=== PATIENT | female | born 1990 | race Two or more races ===

== ENCOUNTER 2017-07-05 07:54 | Emergency (ER) | payer MEDICAID ==
[~2017-07-05] VITALS: Ht 165.1 cm; Wt 113.4 kg
[~2017-07-05 07:54] MED LIST: GLUCOPHAGE500 MG ORAL; GLYBURIDE2.5 MG PO; NKM; OMEPRAZOLE40 M1 ORAL; RANITIDINE HCL150 MG ORAL; ZOFRAN ODT4 MG ORAL
--- NOTE | 2017-07-05 08:23 | Emergency Room Report ---
History of Present Illness General Chief Complaint: General Complaint Source: Patient Present Illness HPI 26YOM with 2 days intermittent bitemporal headache. Sharp, 4/10 pain. Associated with subjective "fever" yesterday. States she is about 3-4 months - taking multivitamins. Has not seen OB yet - "just found out I was ." No history of migraines, headaches. Denies neck pain/stiffness. Denies trauma Had 1 episode nausea/vomiting last night. Tolerating PO this morning Denies diarrhea. C/o polyuria Allergies: Coded Allergies: NO KNOWN ALLERGIES (Verified Allergy, Unknown, 03/26/15) Patient History Past Medical History: none Past Surgical History: none Pertinent Family History: none Social History: Denies: smoking, alcohol use, drug use Now: Yes Immunizations: UTD Reviewed Nursing Documentation: PMH: Agreed, PSxH: Agreed Nursing Documentation-PMH Hx Cardiac Problems: No Hx Hypertension: No Hx Diabetes: Yes Hx Cancer: No Hx Gastrointestinal Problems: No - Pancreatitis 03/2015 Hx Neurological Problems: No Review of Systems All Other Systems: negative except mentioned in HPI Physical Exam Vital Signs Date Time Temp Pulse Resp B/P (MAP) Pulse Ox O2 Delivery O2 Flow Rate FiO2 07/05/17 08:00 98.4 96 20 109/70 99 Room Air Sp02 EP Interpretation: reviewed, normal General Appearance: normal inspection, well appearing, no apparent distress, alert, GCS 15, non-toxic, obese Head: normocephalic, atraumatic Eyes: bilateral eye PERRL, bilateral eye EOMI ENT: normal ENT inspection, hearing grossly normal, normal pharynx, no angioedema, normal voice, TMs + canals normal, uvula midline, moist mucus membranes Neck: normal inspection, full range of motion, supple, thyroid normal, no meningismus, no bony tend Respiratory: normal inspection, lungs clear, normal breath sounds, no rhonchi, no respiratory distress, no retraction, no accessory muscle use, no wheezing, speaking full sentences Cardiovascular #1: regular rate, rhythm, no edema, no JVD, normal capillary refill Gastrointestinal: normal inspection, normal bowel sounds, non tender, soft, no mass, no peritonitis, non-distended, no guarding, no hernia, no pulsatile mass Genitourinary: no CVA tenderness Musculoskeletal: normal inspection, back normal, normal range of motion, no calf tenderness, pelvis stable, Fercho's Sign negative Neurologic: normal inspection, alert, oriented x3, responsive, renewals manager III-XII nml as tested, motor strength/tone normal, cerebellar normal, normal gait, speech normal Psychiatric: normal inspection, judgement/insight normal, mood/affect normal, no suicidal/homicidal ideation, no delusions Skin: normal inspection, normal color, no rash Lymphatic: normal inspection, no adenopathy Medical Decision Making Diagnostic Impression: Primary Impression: Headache Qualified Codes: G44.209 - Tension-type headache, unspecified, not intractable Additional Impressions: Polyuria Qualified Codes: Z34.90 - Encounter for supervision of normal , unspecified, unspecified trimester ER Course 26-year-old female approximately 3-4 months complaining of 2 days of bitemporal headache. Headache likely tension headache given duration of 2 days , intermittent quality. Unlikely SAH or meningitis given no focal deficits, afebrile, normal vital signs, well appearance. Was given Tylenol and Zofran with improvement in symptoms Urine preg negative UA: No hematuria or bacteria. ER course: Patient has remained stable during ED stay. Disposition: Patient is to be discharged to home. Prescriptions given are tylenol, zofran Patient is instructed to follow up with their primary care doctor within 5 days. Strict return precautions discussed with patient such as fever, chills, worsening/severe pain, nausea, vomiting, which may indicate severe illness. Patient verbalizes understanding and agrees with plan. Please note that this Emergency Department Report was dictated using [employer] in hand technology software, occasionally this can lead to erroneous entry secondary to interpretation by the dictation equipment Last Vital Signs Date Time Temp Pulse Resp B/P (MAP) Pulse Ox O2 Delivery O2 Flow Rate FiO2 07/05/17 08:00 98.4 96 20 109/70 99 Room Air Status: improved Disposition: HOME, SELF-CARE VIVIEN LERMA M.D. Jul 05, 2017 08:23
[2017-07-05 08:33] LABS: APPEARANCE,URINE CLEAR; BILIRUBIN, URINE NEGATIVE (NEGATIVE); COLOR,URINE PALE YELLOW; GLUCOSE, URINE (UA) NEGATIVE (NEGATIVE); KETONES,URINE NEGATIVE (NEGATIVE); LEUKOCYTE ESTERASE ,URINE NEGATIVE (NEGATIVE); NITRITE,URINE NEGATIVE (NEGATIVE); PH,URINE 8 (4.5-8.0); PROTEIN,URINE NEGATIVE (NEGATIVE); UROBILINOGEN,URINE NORMAL MG/DL (0.0-1.0)
[2017-07-05] MEDS ORDERED: TYLENOL325 MG ORAL (08:41)
[2017-07-05] MEDS ORDERED: ZOFRAN ODT4 MG ORAL (08:41)
[2017-07-05 08:51] VITALS: BP 123/83
== END 2017-07-05 08:55 | disposition home or self-care (01) ==
LOC: EMR 08:10
DX: R51 Headache (principal); R35.8 Other polyuria; E11.9 Type 2 diabetes mellitus without complications; Z33.1 Pregnant state, incidental
CPT/HCPCS: 81003; 81025; 99283

== ENCOUNTER 2017-11-28 15:36 | Emergency (ER) | payer MEDICAID ==
[~2017-11-28] VITALS: Ht 167.6 cm; Wt 122.5 kg
[~2017-11-28 15:36] MED LIST changes: +TYLENOL325 MG ORAL
[2017-11-28 16:05] VITALS: BP 113/64
--- NOTE | 2017-11-28 16:12 | Emergency Room Report ---
History of Present Illness General Chief Complaint: Complications Present Illness HPI Patient is a 26-year-old female who presented after increased vaginal bleeding. Patient reports having mild amount of bleeding which began this morning. The patient states she is approximately the 34 weeks. The patient states that she was scheduled to deliver at [facility]. The patient reported having intermittent abdominal cramping. Patient denies any leakage of fluid.. She states that baby is moving normally. The patient denies any fever. Allergies: Coded Allergies: NO KNOWN ALLERGIES (Verified Allergy, Unknown, 03/26/15) Patient History Past Medical History: see triage record Now: Yes : 1 Para: 0 Reviewed Nursing Documentation: PMH: Agreed; PSxH: Agreed Nursing Documentation-PMH Hx Cardiac Problems: No Hx Hypertension: No Hx Diabetes: Yes Hx Cancer: No Hx Gastrointestinal Problems: No - Pancreatitis 03/2015 Hx Neurological Problems: No Review of Systems All Other Systems: negative except mentioned in HPI Physical Exam Vital Signs Date Time Temp Pulse Resp B/P (MAP) Pulse Ox O2 Delivery O2 Flow Rate FiO2 11/28/17 15:42 98.2 120 20 113/64 99 Room Air 98.2 General Appearance: well appearing, no apparent distress, alert, GCS 15 Head: normocephalic, atraumatic ENT: hearing grossly normal, normal voice Neck: full range of motion, supple Respiratory: no respiratory distress, speaking full sentences Musculoskeletal: no calf tenderness Neurologic: normal inspection, alert, oriented x3, normal gait Psychiatric: mood/affect normal Skin: no rash Medical Decision Making Diagnostic Impression: Primary Impression: Intrauterine Additional Impression: Third trimester bleeding ER Course Patient presented for vaginal bleeding. Differential diagnosis included was not limited to labor, abruption, placenta previa, bloody show among others. The bedside ultrasound was performed and showed adequate heart tones with a rate approximately 150. The patient was advised that the week do not have the labor and delivery at this facility. The patient was offered transfer to another facility and she stated she wanted to leave and seek medical care at different facility. Last Vital Signs Date Time Temp Pulse Resp B/P (MAP) Pulse Ox O2 Delivery O2 Flow Rate FiO2 11/28/17 15:42 98.2 120 20 113/64 99 Room Air 98.2 Status: unchanged Disposition: AGAINST MEDICAL ADVICE Condition: Unknown Patient Instructions: Vaginal Bleeding During , Third Trimester, Easy- to-Read Ko Soares MD November 28, 2017 16:12
== END 2017-11-28 17:30 | disposition left against medical advice (07) ==
LOC: EMR 17:00
DX: O46.93 Antepartum hemorrhage, unspecified, third trimester (principal); Z3A.00 Weeks of gestation of pregnancy not specified
CPT/HCPCS: 99284